=== PATIENT | female | born 1940 | race Caucasian/White ===

== ENCOUNTER 2017-07-07 16:26 | Inpatient (IN) | payer MEDICARE, BC ==
[~2017-07-07] VITALS: Ht 157.5 cm; Wt 63.5 kg
[~2017-07-07 16:26] MED LIST: PERCOCET 5-3251 EACH PO
[2017-07-07 16:31] VITALS: BP 190/96
[2017-07-07 16:48] LABS: URINE BILIRUBIN NEGATIVE (Negative); URINE BLOOD 2+ (Negative); URINE CLARITY CLEAR; URINE COLOR YELLOW; URINE GLUCOSE-RANDOM NEGATIVE (Negative); URINE KETONES 2+ (Negative); URINE LEUKOCYTES-REFLEX NEGATIVE (Negative); URINE NITRITE-REFLEX NEGATIVE (Negative); URINE PROTEIN NEGATIVE (Negative); URINE SPECIFIC GRAVITY 1.025 (1.005-1.030); URINE UROBILINOGEN 0.2 E.U./dl (0.2-1.0)
[2017-07-07 17:02] LABS: HEMOGLOBIN 16.2 gm/dL (12.0-15.0); MCHC 34.4 g/dL (28.0-37.0); MCV 90.2 fL (80.0-100.0); MPV 8.2 fl. (7.2-11.1); NUCLEATED RBCS 0 /100WBC; PLATELET COUNT* 227 thou/uL (150-400); RBC 5.22 mil/uL (4.20-5.00); RDW-CV 12.8 % (10.5-14.5); WBC 6.5 thou/uL (4.0-11.0)
[2017-07-07 17:10] LABS: ANION GAP 7 mmol/L (7-16); BUN 8 mg/dL (7-18); CALCIUM 8.5 mg/dL (8.5-10.1); CHLORIDE 101 mmol/L (98-107); CO2 30 mmol/L (21-32); CREATININE 0.9 mg/dL (0.6-1.3); GLUCOSE 109 mg/dL (70-99); POTASSIUM 3.4 mmol/L (3.5-5.1); SODIUM 138 mmol/L (136-145)
[2017-07-07 17:16] LABS: CASTS None Seen /LPF (None Seen); CRYSTALS None Seen /LPF (None Seen); MUCUS None Seen strn/LPF (None Seen); SQUAMOUS >10 Many /LPF (0-3)
[2017-07-07 17:17] LABS: URINE WBC-REFLEX 0-5 Rare /HPF (0-5)
[2017-07-07 17:18] LABS: BACTERIA-REFLEX 1-9 Few /HPF (None Seen); URINE RBC 3-10 Few /HPF (0-2)
[2017-07-07 17:21] LABS: ALBUMIN 4.1 g/dL (3.4-5.0); ALKALINE PHOSPHATASE 83 U/L (46-116); NT-PRO BRAIN NAT PEPTIDE 207 pg/mL (<300); SGOT 18 U/L (15-37); SGPT 15 U/L (30-65); TOTAL BILIRUBIN 0.5 mg/dL (<0.1-1.0); TOTAL PROTEIN 8.3 g/dL (6.4-8.2); TROPONIN-I LEVEL <0.06 ng/mL (<0.06)
[2017-07-07 17:31] LABS: INFLUENZA B ANTIGEN None Detected (None Detect)
[2017-07-07 17:40] LABS: ABSOLUTE LYMPHOCYTES 0.4 thou/uL (0.8-5.3); ABSOLUTE MONOCYTES 0.5 thou/uL (0.0-1.2); ABSOLUTE NEUTROPHILS 5.7 thou/uL (1.6-8.1)
[2017-07-07 17:41] LABS: PLATELET ESTIMATE ADEQUATE
[2017-07-07 21:08] VITALS: BP 133/66
[2017-07-07 21:20] VITALS: BP 135/72
[2017-07-08 04:00] VITALS: BP 130/69
[2017-07-08 04:11] LABS: HEMATOCRIT 40.7 % (37.0-47.0); MCH 31.2 pg (26.0-34.0); MCHC 34.7 g/dL (28.0-37.0); MCV 89.8 fL (80.0-100.0); MPV 8.2 fl. (7.2-11.1); RBC 4.53 mil/uL (4.20-5.00)
[2017-07-08 04:12] LABS: HEMOGLOBIN 14.1 gm/dL (12.0-15.0)
[2017-07-08 04:34] LABS: ALBUMIN 3.1 g/dL (3.4-5.0); CALCIUM 7.3 mg/dL (8.5-10.1); CREATININE 0.7 mg/dL (0.6-1.3); MAGNESIUM 1.8 mg/dL (1.8-2.4); POTASSIUM 3.6 mmol/L (3.5-5.1); TOTAL BILIRUBIN 0.3 mg/dL (<0.1-1.0); TOTAL PROTEIN 5.8 g/dL (6.4-8.2)
[2017-07-08 08:00] VITALS: BP 116/65
[2017-07-08 12:25] VITALS: BP 133/65
--- NOTE | 2017-07-08 12:40 | EKG ---
[place] [address] ELECTROCARDIOGRAM REPORT Name: KRISTIN MARTIN Room: [address] ADM IN M.R.#: [id number] Admission: 07/07/17 Attend Phys: Vinicio Henry, Discharge: Date of : 44 Report #: [id number] THIS REPORT FOR: //name// [facility] ED Test Date: 2017-07-07 Test Time: 16:34:04 Pat Name: KRISTIN MARTIN Department: Room: [facility] Gender: F Survey Technician: GENET : 1940 Requested By: Kash Tee Order Number: [id number] MD: Cy Munoz Measurements Intervals [place] Rate: 110 P: 79 [place]: 148 QRS: 66 QRSD: 92 T: 51 QT: 351 QTc: 475 Interpretive Statements Sinus tachycardia No previous ECG available for comparison Electronically Signed On 07-08-2017 12:40:27 HOOP MAKER by Cy Munoz [email or web address] <ELECTRONICALLY SIGNED> By: Mica Munoz MD, [facility] 07/08/17 1240 1634 [id number] iMca Munoz MD, FAC /EPI
[2017-07-08 16:58] VITALS: BP 127/55
[2017-07-08 23:36] VITALS: BP 148/74
[2017-07-09 05:13] LABS: HEMATOCRIT 40.1 % (37.0-47.0); HEMOGLOBIN 13.9 gm/dL (12.0-15.0); MCH 31.2 pg (26.0-34.0); MCHC 34.7 g/dL (28.0-37.0); MPV 8.4 fl. (7.2-11.1); RBC 4.45 mil/uL (4.20-5.00); RDW-CV 12.7 % (10.5-14.5); WBC 4.3 thou/uL (4.0-11.0)
[2017-07-09 05:56] LABS: CALCIUM 7.5 mg/dL (8.5-10.1); CREATININE 0.8 mg/dL (0.6-1.3); POTASSIUM 3.4 mmol/L (3.5-5.1); TOTAL BILIRUBIN 0.2 mg/dL (<0.1-1.0); TOTAL PROTEIN 5.7 g/dL (6.4-8.2)
[2017-07-09 08:30] VITALS: BP 100/55
[2017-07-09 11:58] VITALS: BP 162/80
[2017-07-09 16:12] VITALS: BP 146/84
[2017-07-09 18:06] VITALS: BP 146/84
[2017-07-09 20:00] VITALS: BP 167/81
[2017-07-10] VITALS: BP 167/81
[2017-07-10 07:45] VITALS: BP 174/80
[2017-07-10 08:00] VITALS: BP 174/80
[2017-07-10 10:49] LABS: HEMATOCRIT 44.3 % (37.0-47.0); HEMOGLOBIN 15.3 gm/dL (12.0-15.0); MCH 31.1 pg (26.0-34.0); MCHC 34.6 g/dL (28.0-37.0); MCV 89.9 fL (80.0-100.0); RBC 4.93 mil/uL (4.20-5.00); RDW-CV 12.9 % (10.5-14.5); WBC 4.5 thou/uL (4.0-11.0)
[2017-07-10 10:59] LABS: CALCIUM 8.1 mg/dL (8.5-10.1); CREATININE 0.8 mg/dL (0.6-1.3); POTASSIUM 3.2 mmol/L (3.5-5.1)
[2017-07-11] VITALS: BP 151/73
[2017-07-11 04:43] LABS: HEMATOCRIT 42.2 % (37.0-47.0); HEMOGLOBIN 14.4 gm/dL (12.0-15.0); MCH 30.4 pg (26.0-34.0); MCV 89.3 fL (80.0-100.0); MPV 8.7 fl. (7.2-11.1); RBC 4.73 mil/uL (4.20-5.00); RDW-CV 12.7 % (10.5-14.5); WBC 6.1 thou/uL (4.0-11.0)
[2017-07-11 04:55] LABS: ALBUMIN 3.2 g/dL (3.4-5.0); CALCIUM 7.9 mg/dL (8.5-10.1); CREATININE 0.7 mg/dL (0.6-1.3); POTASSIUM 3.4 mmol/L (3.5-5.1); TOTAL BILIRUBIN 0.4 mg/dL (<0.1-1.0)
[2017-07-11 07:35] VITALS: BP 170/86
[2017-07-11 09:13] LABS: CHOLESTEROL 171 mg/dL (<200); HDL CHOLESTEROL < 3 mg/dL (>40); LDL CHOLESTEROL 143 mg/dL (<100); TRIGLYCERIDE 128 mg/dL (<150); VLDL 26 mg/dL (<40)
[2017-07-11 09:15] LABS: SERUM ASSESSMENT Clear
[2017-07-11] MEDS ORDERED: MUCINEX600 MG PO (11:42)
[2017-07-11] MEDS ORDERED: LEVAQUIN 500 M500 M3 PO (11:42)
[2017-07-11] MEDS ORDERED: ADULT LOW DOSE81 MG PO (11:42)
[2017-07-11] MEDS ORDERED: LIPITOR10 MG PO (11:42)
[2017-07-11 14:52] VITALS: BP 170/86
[2017-07-11 15:17] VITALS: BP 170/86
--- NOTE | 2017-07-13 16:01 | CON ---
[address] [address] CONSULTATION Name: KRISTIN MARTIN Room: [address] IN M.R.#: [id number] Admission: 07/07/17 Attend Phys: Vinicio Henry, Discharge: 07/11/17 Date of : 44 Report #: [id number] THIS REPORT FOR: //name// CC: Vinicio Quiroz DATE OF SERVICE: 07/09/2017 This is TICO Bolivar dictating in collaboration with Dr. Wild Campo. REASON FOR CONSULTATION: Carotid artery stenosis. HISTORY OF PRESENT ILLNESS: The patient is a very pleasant 77-year-old female who presented to the emergency department on Sunday after developing weakness. She reports that she had been feeling well Sunday morning, went to the grocery store, brought groceries, came home and was able to put them away. Around noon, she felt tired as well as some mild GI upset. On Sunday, she again felt weak. She developed some low back pain. She reports she was unable to get completely back up onto her bed, so she slid down to the floor. Despite her best efforts, she was unable to get herself back up off the floor, so had to call her daughter. She ultimately presented to the emergency department for further evaluation and treatment. A CT of the head was obtained, which was negative for an acute infarct. A carotid Doppler was obtained, which demonstrated 50-60% stenosis in the left internal carotid artery. We have been asked to evaluate the patient and give our opinion regarding the findings. She denies any CVA or TIA type symptoms. She is a daily smoker. She is generally able to care for herself. She does her own errands. She reports she normally gomze far away from the store, is able to walk through the store to run her own errands without any claudication type symptoms. She denies any nocturnal leg cramping. She denies any fevers or chills, chest pain or shortness of breath. PAST MEDICAL HISTORY: Tobaccoism. SOCIAL HISTORY: She is a current everyday smoker. She is a , lives in her own home alone. She has one daughter who is a good support system. She denies any illicit drug use, reports occasional alcohol use. PAST SURGICAL HISTORY: 1. Tonsillectomy. 2. Hysterectomy. ALLERGIES: No known drug allergies. HOME MEDICATIONS: She reports that she occasionally takes an aspirin, otherwise [place] [address] CONSULTATION Name: KRISTIN MARTIN Room: [address]#: [id number] Admission: 07/07/17 Attend Phys: Vinicio Henry, Discharge: 07/11/17 Date of : 44 Report #: [id number] FAMILY HISTORY: Significant for chronic obstructive pulmonary disease. REVIEW OF SYSTEMS: A 12-point review of systems has been reviewed and is negative except for the above-mentioned in the history of present illness. PHYSICAL EXAMINATION: VITAL SIGNS: Temperature 37.3, heart rate 77, respiratory rate 17, blood pressure 148/74, and oxygen saturation is 100% on room air. GENERAL: She is alert and oriented, in no acute distress. She is sitting up in a chair, eating breakfast. HEENT: Head is normocephalic, atraumatic. NECK: Supple without jugular venous distention or carotid bruit. HEART: Regular rate and rhythm. CHEST: Lungs are clear to auscultation bilaterally. ABDOMEN: Soft, nontender, positive bowel sounds. EXTREMITIES: She has palpable bilateral radial pulses, nonpalpable pedal pulses bilaterally. She has no edema, no abrasions or ecchymosis in her lower extremities. Her feet are pink, warm, neuromotor intact. NEUROLOGIC: Alert and oriented with no focal neurologic deficits. LABORATORY DATA: Hemoglobin 13.9, hematocrit 40.1, white blood cell count 4.3, platelets 183. Sodium 144, potassium 3.4, chloride 108, CO2 of 27, BUN 8, creatinine 0.8, and glucose is 100. ASSESSMENT AND PLAN: 1. Carotid artery stenosis. The peak systolic velocity in the left internal carotid artery is 131 cm/sec suggestive of 50-60% stenosis, the peak systolic velocity in the right internal carotid artery is 120 cm/sec suggestive of approximately 40% stenosis. No surgical intervention is currently indicated. We do recommend a daily 81 mg aspirin for stroke risk reduction. We will obtain a followup carotid duplex in 1 year. She is okay to discharge to home from a vascular surgery standpoint. 2. Generalized weakness, likely secondary to influenza. She did test positive for influenza A. She is currently on Tamiflu. 3. Hydrocephalus identified on the CT, possible toxic encephalopathy. MRI head is pending, currently on empiric IV antibiotic therapy. We thank you for the opportunity to participate in the care of the patient. Please feel free to contact our office with any questions or concerns. <ELECTRONICALLY SIGNED> By: Wild Campo DO 07/13/17 1601 1046 [id number] Olivera, WAREHOUSE DRIVER /nt
--- NOTE | 2017-07-19 11:51 | CON ---
[address] [address] CONSULTATION Name: KRISTIN MARTIN Room: [address] IN .R.#: [id number] Admission: 07/07/17 Attend Phys: Vinicio Henry, Discharge: 07/11/17 Date of : 44 Report #: [id number] THIS REPORT FOR: //name// CC: Vinicio Quiroz DATE OF SERVICE: 07/10/2017 HISTORY OF PRESENT ILLNESS: This is a 77-year-old female patient who was evaluated by me because a CT scan demonstrated moderate amount of hydrocephalus. She indicates that she was not feeling well for the last few days. Grandson came and she was sitting on the bed, she slid down from the bed. She was fully conscious. She was still able to move her legs, but looks like she was not able to do much with the legs like walking. History is poorly defined in that regard. She has improved as far as symptoms are concerned. CT scan indicated that this patient had a moderate amount of hydrocephalus. REVIEW OF SYSTEMS: Indicates she does not have much ataxia in the baseline. She thinks her cognition is reasonable. She does have some carotid Doppler, which was evaluated by Vascular Surgery. She is able to do the activities of daily living. She drives. I carried out 14-point review of system with her. She did have some GI issue in the past. She does have a wrist fracture where she had a plate put in. Rest of the 14-point review of system was unremarkable. She is not complaining of any new eye, ENT, cardiac, GI, , musculoskeletal, constitutional, dermatological, hematological, psychiatric, throat, endocrine or allergic symptom associated with present symptomatology. PAST MEDICAL HISTORY: Negative for any stroke. FAMILY HISTORY: Negative for any early age stroke. SOCIAL HISTORY: She drinks alcohol only occasionally. PHYSICAL EXAMINATION: NEUROLOGIC: Indicates that she is alert, responsive, oriented. Her speech, concentration, fund of knowledge and memory is at her baseline. Cranial nerve examination 2-12 is unremarkable. There is no papilledema. She has symmetrical strength, sensation, reflexes and tones in all 4 extremities. There is no meningeal sign. NECK: There is no carotid bruit. CARDIAC: Shows unremarkable heart sounds and unremarkable exam. RESPIRATORY: No respiratory difficulty or rhonchi on either side. EXTREMITIES: Pulses are palpable and she has no edema, cyanosis or jaundice. VITAL SIGNS: Blood pressure is 167/81, respirations 16, pulse is 80, temperature is 98.2. [place] [address] CONSULTATION Name: KRISTIN MARTIN Room: [address]#: [id number] Admission: 07/07/17 Attend Phys: Vinicio Henry, Discharge: 07/11/17 Date of : 44 Report #: [id number] HEENT: There is no thyroid mass. Her hearing and vision is adequate. GENERAL: She is a well-developed, well-nourished individual. LABORATORY DATA: Indicate a white count of 4.5. IMAGING STUDIES: Reviewed. She does have moderate amount of hydrocephalus. IMPRESSION: 1. Moderate amount of hydrocephalus, which appeared to be asymptomatic at the moment. 2. Moderate amount of carotid disease. 3. Present symptoms which does not look like transient ischemic attack, but we will see what the MRI shows and decide about further workup on the basis of that testing. RECOMMENDATIONS: 1. Lipid profile. If lipid profile is abnormal, then consider statin. 2. Antiplatelet therapy. 3. More blood workup, which I ordered. 4. We will see what the MRI show and if anything else needs to be done differently in this patient based on that. I discussed all of it with the patient in great detail. She understands and she wants to follow this plan. More than 50 minutes of time was spent taking care of this patient today and majority of that time was spent coordinating her care as well as counseling this patient. <ELECTRONICALLY SIGNED> By: Roderick Mason MD 07/19/17 1151 [id number] Mason MD /nt
== END 2017-07-11 16:05 | disposition home health service (06) | DRG 871 ==
LOC: M.ERS 16:26 → M.TBA-ER 18:49 → M.3W 18:49
PROVIDERS: Emergency Medicine Emergency Medical Services; Internal Medicine; Psychiatry & Neurology Neuromuscular Medicine; ADMIT Family Medicine
DX: A41.9 Sepsis, unspecified organism (principal); J10.00 Influenza due to other identified influenza virus with unspecified type of pneumonia; G92 Toxic encephalopathy; G91.9 Hydrocephalus, unspecified; F17.210 Nicotine dependence, cigarettes, uncomplicated; Z60.2 Problems related to living alone; I65.22 Occlusion and stenosis of left carotid artery; I10 Essential (primary) hypertension; E87.6 Hypokalemia; E86.0 Dehydration; M51.37 Other intervertebral disc degeneration, lumbosacral region; Z53.29 Procedure and treatment not carried out because of patient's decision for other reasons; Z90.710 Acquired absence of both cervix and uterus

== ENCOUNTER → 2018-08-22 | Outpatient (CLI) | payer MEDICARE, BC ==
[~2018-08-22] MED LIST changes: +ADULT LOW DOSE81 MG PO; +LEVAQUIN 500 M500 M3 PO; +LIPITOR10 MG PO; +MUCINEX600 MG PO
== END ==
LOC: M.LAB 08-15 08:30 → M.CT 08-15 09:30 → M.LAB 08:30
PROVIDERS: Nurse Practitioner Family
DX: G91.9 Hydrocephalus, unspecified (principal)